=== PATIENT | female | born 1935 | race Two or more races ===

== ENCOUNTER 2024-01-16 08:15 | Inpatient (IN) | payer OTHER ==
[~2024-01-16] VITALS: Ht 152.4 cm; Wt 88.5 kg
[2024-01-16] MEDS ORDERED: TOLTERODINE TART4 MG (10:05)
[2024-01-16] MEDS ORDERED: [UNRECOGNIZED DRUG - OTHER] (10:06)
[2024-01-16] MEDS ORDERED: COZAAR100 MG (10:07)
[2024-01-16] MEDS ORDERED: [UNRECOGNIZED DRUG - OTHER] (10:07)
[2024-01-16] MEDS ORDERED: GABAPENTIN800 MG (10:08)
[2024-01-16] MEDS ORDERED: LANTUS SOL100 UNIT/1 (10:08)
[2024-01-16] MEDS ORDERED: ESCITALOPRAM (10:08)
[2024-01-16 11:15] LABS: HEMATOCRIT 34.4 % (36.0-45.00); HEMOGLOBIN 11.8 g/dL (12.0-15.00); MEAN CELL VOLUME 87.6 fL (80.00-100.00); MEAN CORPUSCULAR HEMOGLOBIN 30.1 pg (27.00-32.0); MEAN CORPUSCULAR HGB CONC 34.3 g/dl (32.0-36.0); PLATELET COUNT 325 K/uL (150-450); RED BLOOD COUNT 3.93 M/uL (4.00-6.00); RED CELL DISTRIBUTION WIDTH 14.1 % (11.5-14.5)
[2024-01-16 11:39] LABS: INR 1.02; PARTIAL THROMBOPLASTIN TIME 32.5 SECONDS (22.0-34.0); PROTHROMBIN TIME 10.7 SECONDS (9.0-11.5)
[2024-01-16 11:42] LABS: ALBUMIN 3.8 gm/dL (3.4-5.0); BILIRUBIN TOTAL 1.22 mg/dL (0.3-1.2); CALCIUM 9.7 mg/dL (8.5-10.1); CREATININE SERUM 0.96 mg/dL (0.55-1.02); GFR 54.85; GLOBULINA 3.6 G/DL (2.4-3.5); POTASSIUM 4.33 mEq/L (3.5-5.1); TOTAL PROTEIN 7.4 gm/dL (6.4-8.2)
[2024-01-16 11:57] LABS: PH,URINE 5.5 (5.0-8.0); URINE APPEARANCE Clear; URINE BILIRRUBIN Negative (NEGATIVE); URINE BLOOD Negative; URINE COLOR Yellow; URINE GLUCOSE Negative (NEGATIVE); URINE LEUKOCYTE Negative; URINE NITRATE Negative; URINE PROTEIN 30 (NEGATIVE)
[2024-01-16 12:02] LABS: URINE BACTERIA 36.5 uL (0.0-1933); URINE EPITHELIAL CELLS 9.7 uL (0.0-38.8); URINE RBC 4.5 uL (0.0-20.8); URINE WBC 13.4 uL (0.0-23.2)
[2024-01-23] MEDS ORDERED: TRANEXAMIC ACID 100MG/1ML (1000MG) AMPUL IV ONE ×3 (08:26→10:00)
[2024-01-23] MEDS ORDERED: CEFAZOLIN SODIUM 1,000 MG VIAL ONE (08:26)
[2024-01-23] MEDS ORDERED: ROPINIROLE HC0.25 MG (09:54)
[2024-01-23] MEDS ORDERED: ESCITALOPRAM OX10 MG (09:54)
[2024-01-23] MEDS ORDERED: ACEBUTOLOL HCL200 MG (09:56)
[2024-01-23] MEDS ORDERED: ACEBUTOLOL HCL400 MG (09:56)
[2024-01-23] MEDS ORDERED: MORPHINE SULFATE 4 MG/ML VIAL IV ONE (10:00)
[2024-01-23] MEDS ORDERED: CEFAZOLIN SODIUM 1,000 MG VIAL IV ONE (10:00)
[2024-01-23] MEDS ORDERED: KETOROLAC TROMETHAMINE 60 MG VIAL IM ONE (10:00)
[2024-01-23] MEDS ORDERED: PANTOPRAZOLE SO40 MG (10:03)
[2024-01-23] MEDS ORDERED: ONDANSETRON HCL 2 MG/ML VIAL IV PRN (12:15)
[2024-01-23] MEDS ORDERED: OxyCODONE HCL/APAP UD (PERCOCET) PO PRN (12:15)
[2024-01-23] MEDS ORDERED: hydrALAZINE HCL 20 MG VIAL ONE (12:55)
[2024-01-23] MEDS ORDERED: INSULIN LISPRO 1,000 UNIT/10 ML UNITS SUBCUTANEO PRN (15:00)
[2024-01-23] MEDS ORDERED: hydrALAZINE HCL 20 MG VIAL IV PRN (15:00)
[2024-01-23] MEDS ORDERED: DEXTROSE 50 % IN WATER 0.5 G/ML DISP.SYRIN IV PRN (15:00)
[2024-01-23] MEDS ORDERED: CEFAZOLIN SODIUM 1,000 MG VIAL IV SCH (18:00)
[2024-01-23] MEDS ORDERED: MORPHINE SULFATE 4 MG/ML CARTRIDGE IV SCH (18:00)
[2024-01-23] MEDS ORDERED: ORPHENADRINE CITRATE 100 MG TABLET PO SCH (21:00)
[2024-01-23] MEDS ORDERED: GABAPENTIN 100 MG CAPSULE PO SCH (21:00)
[2024-01-23 21:02] LABS: HEMATOCRIT 30.8 % (36.0-45.00); HEMOGLOBIN 10.6 g/dL (12.0-15.00); MEAN CELL VOLUME 87.5 fL (80.00-100.00); MEAN CORPUSCULAR HEMOGLOBIN 30.1 pg (27.00-32.0); MEAN CORPUSCULAR HGB CONC 34.4 g/dl (32.0-36.0); PLATELET COUNT 243 K/uL (150-450); RED BLOOD COUNT 3.52 M/uL (4.00-6.00)
[2024-01-23 21:31] LABS: CALCIUM 8.8 mg/dL (8.5-10.1); CREATININE SERUM 0.98 mg/dL (0.55-1.02); GFR 53.56; POTASSIUM 4.45 mEq/L (3.5-5.1)
[2024-01-24 06:56] LABS: HEMATOCRIT 28.5 % (36.0-45.00); MEAN CELL VOLUME 88.6 fL (80.00-100.00); MEAN CORPUSCULAR HEMOGLOBIN 31.1 pg (27.00-32.0); MEAN CORPUSCULAR HGB CONC 35.1 g/dl (32.0-36.0); PLATELET COUNT 253 K/uL (150-450); RED BLOOD COUNT 3.21 M/uL (4.00-6.00); RED CELL DISTRIBUTION WIDTH 13.6 % (11.5-14.5)
[2024-01-24] MEDS ORDERED: ENOXAPARIN SODIUM 30 MG/0.3 ML SYRINGE SUBCUTANEO SCH (09:00)
[2024-01-24] MEDS ORDERED: ROPINIROLE 2 MG PO SCH (09:00)
[2024-01-24] MEDS ORDERED: LOSARTAN POTASSIUM 100 MG TABLET PO SCH (09:00)
[2024-01-24] MEDS ORDERED: SOD FERRIC GLUC COMPLX/SUCROSE 62.5 MG/5 ML AMPUL IV SCH (13:01)
[2024-01-24] MEDS ORDERED: IRON FUM,PS/FOLIC ACID/VITC/B3 1 CAP CAPSULE PO SCH (13:01)
[2024-01-24] MEDS ORDERED: Cyanocobalamin/Mecobalamin 1 TAB.SL SL SCH (13:01)
[2024-01-24] MEDS ORDERED: VITAMIN B COMPLEX 1 EACH PO SCH (17:00)
== END 2024-01-25 16:02 | DRG 470 ==
LOC: SURG 01-23 05:55 → O/R 01-23 05:55 → SURH 01-23 07:00 → SURG 01-23 12:41 → SURH 01-23 17:48 → SURG 01-23 18:20
PROVIDERS: Internal Medicine; ADMIT Orthopaedic Surgery; ATTEND Orthopaedic Surgery
PROC: 0SRC0JZ Replacement of Right Knee Joint with Synthetic Substitute, Open Approach (ICD-10-PCS; principal; 2024-01-23 07:00)
DX: M17.11 Unilateral primary osteoarthritis, right knee (principal); D62 Acute posthemorrhagic anemia; M85.661 Other cyst of bone, right lower leg

== ENCOUNTER 2024-01-26 14:40 | Inpatient (IN) | payer OTHER ==
[~2024-01-26] VITALS: Ht 162.6 cm; Wt 68.5 kg
[~2024-01-26 14:40] MED LIST: ACEBUTOLOL HCL200 MG; ACEBUTOLOL HCL400 MG; COZAAR100 MG; ESCITALOPRAM; ESCITALOPRAM OX10 MG; GABAPENTIN800 MG; LANTUS SOL100 UNIT/1; PANTOPRAZOLE SO40 MG; ROPINIROLE HC0.25 MG; TOLTERODINE TART4 MG; [UNRECOGNIZED DRUG - OTHER]; [UNRECOGNIZED DRUG - OTHER]
[2024-01-26 17:38] LABS: PH,URINE 6.5 (5.0-8.0); URINE APPEARANCE Clear; URINE BILIRRUBIN Negative (NEGATIVE); URINE BLOOD Trace; URINE COLOR Yellow; URINE LEUKOCYTE Negative; URINE NITRATE Negative
[2024-01-26 17:39] LABS: URINE BACTERIA 245.7 uL (0.0-1933); URINE EPITHELIAL CELLS 6.6 uL (0.0-38.8); URINE RBC 9.7 uL (0.0-20.8)
[2024-01-26 17:53] LABS: HEMATOCRIT 25.3 % (36.0-45.00); MEAN CELL VOLUME 86.9 fL (80.00-100.00); MEAN CORPUSCULAR HGB CONC 35.3 g/dl (32.0-36.0); PLATELET COUNT 261 K/uL (150-450); RED BLOOD COUNT 2.91 M/uL (4.00-6.00); RED CELL DISTRIBUTION WIDTH 14.1 % (11.5-14.5)
[2024-01-26 17:55] LABS: URINE GLUCOSE >=1000 MG/DL (NEGATIVE); URINE PROTEIN 300 (NEGATIVE); URINE WBC 1.5 uL (0.0-23.2)
[2024-01-26 17:56] LABS: HEMOGLOBIN 8.9 g/dL (12.0-15.00); MEAN CORPUSCULAR HEMOGLOBIN 30.5 pg (27.00-32.0)
[2024-01-26 18:04] LABS: ABG PH 7.436 (7.35-7.45); BASE EXCESS -7.3 mmol/l; BICARBONATE 20.3 mmol/l (23-25); SaO2 92.3 %
[2024-01-26 18:05] LABS: Tco2 21.8 mmol/l; allen test SATISFACTORY; puncture site RADIAL RIGHT
[2024-01-26 18:06] LABS: o2 28 %
[2024-01-26 18:07] LABS: CREATININE SERUM 0.86 mg/dL (0.55-1.02); GFR 62.27; POTASSIUM 3.9 mEq/L (3.5-5.1)
[2024-01-26] MEDS ORDERED: FUROsemide 40 MG/4 ML VIAL IV SCH (22:47)
[2024-01-26] MEDS ORDERED: GABAPENTIN 800 MG TABLET PO SCH (22:49)
[2024-01-26] MEDS ORDERED: OxyCODONE HCL/APAP UD (PERCOCET) PO PRN (23:00)
[2024-01-26] MEDS ORDERED: ACETAMINOPHEN 500 MG GEL..CAP PO PRN (23:00)
[2024-01-26] MEDS ORDERED: ONDANSETRON HCL 4 MG in 0.9 % SODIUM CHLORIDE 50 ML IV PRN (23:00)
[2024-01-26] MEDS ORDERED: hydrALAZINE HCL 20 MG VIAL IV PRN (23:00)
[2024-01-26] MEDS ORDERED: INSULIN LISPRO 1,000 UNIT/10 ML UNITS SUBCUTANEO PRN (23:00)
[2024-01-26] MEDS ORDERED: DEXTROSE 50 % IN WATER 0.5 G/ML DISP.SYRIN IV PRN (23:00)
[2024-01-27] MEDS ORDERED: IPRATROPIUM BROMIDE 0.5 MG/2.5 ML AMPUL.NEB IH SCH (01:00)
[2024-01-27 01:16] LABS: CKMB 5.1 NG/ML (0.5-3.6)
[2024-01-27 08:07] LABS: URINE APPEARANCE Clear; URINE BILIRRUBIN Negative (NEGATIVE); URINE BLOOD Negative; URINE COLOR Yellow; URINE GLUCOSE Negative (NEGATIVE); URINE LEUKOCYTE Negative; URINE NITRATE Negative; URINE PROTEIN Trace (NEGATIVE); URINE UROBILINOGEN 0.2 E.U./dl
[2024-01-27 08:08] LABS: HEMATOCRIT 25.2 % (36.0-45.00); MEAN CELL VOLUME 87.9 fL (80.00-100.00); MEAN CORPUSCULAR HGB CONC 35.3 g/dl (32.0-36.0); PLATELET COUNT 263 K/uL (150-450); RED BLOOD COUNT 2.87 M/uL (4.00-6.00); RED CELL DISTRIBUTION WIDTH 13.9 % (11.5-14.5)
[2024-01-27 08:13] LABS: INR 1.04; PARTIAL THROMBOPLASTIN TIME 29.3 SECONDS (22.0-34.0); PROTHROMBIN TIME 10.9 SECONDS (9.0-11.5)
[2024-01-27 08:17] LABS: URINE BACTERIA 13.8 uL (0.0-1933); URINE EPITHELIAL CELLS 4.1 uL (0.0-38.8); URINE RBC 10.3 uL (0.0-20.8); URINE WBC 4.4 uL (0.0-23.2)
[2024-01-27 08:24] LABS: ERYTHROCYTE SEDIMENTATION RATE 55 mm/hr; HEMOGLOBIN 8.9 g/dL (12.0-15.00)
[2024-01-27 08:36] LABS: ALBUMIN 2.9 gm/dL (3.4-5.0); BILIRUBIN TOTAL 1.64 mg/dL (0.3-1.2); BILIRUBIN,CONJUGATED 0.42 mg/dL (0.0-0.2); BILIRUBIN,UNCONJUGATED 1.22 mg/dL (0.0-0.6); CALCIUM 8.1 mg/dL (8.5-10.1); CHOL HDL RATIO 3.3 (0-5.0); CREATININE SERUM 0.9 mg/dL (0.55-1.02); GFR 59.09; GLOBULINA 2.8 G/DL (2.4-3.5); POTASSIUM 3.55 mEq/L (3.5-5.1); TOTAL PROTEIN 5.7 gm/dL (6.4-8.2)
[2024-01-27 08:44] LABS: C-REACTIVE PROTEIN 9.36 MG/DL (0.00-0.29)
[2024-01-27] MEDS ORDERED: ENOXAPARIN SODIUM 40 MG/0.4 ML SYRINGE SUBCUTANEO SCH (09:00)
[2024-01-27] MEDS ORDERED: ROPINIROLE 2 MG PO SCH (09:00)
[2024-01-27] MEDS ORDERED: PATIENTS OWN MEDICATION (MEDICAMENTO EN PISO) PO SCH ×3 (09:00)
[2024-01-27] MEDS ORDERED: PANTOPRAZOLE SODIUM 40 MG in 0.9 % SODIUM CHLORIDE 8 ML IV PUSH SCH (09:00)
[2024-01-27] MEDS ORDERED: LOSARTAN POTASSIUM 100 MG TABLET PO SCH (09:00)
[2024-01-27 09:14] LABS: CKMB 3.8 NG/ML (0.5-3.6)
[2024-01-27 10:21] LABS: CKMB 2.9 NG/ML (0.5-3.6)
[2024-01-27] MEDS ORDERED: INSULIN GLARGINE,HUM.REC.ANLOG 1,000 UNITS/10 ML UNITS SUBCUTANEO STA (11:11)
[2024-01-27] MEDS ORDERED: METOPROLOL SUCCINATE 25 MG TAB.SR.24H PO SCH (14:46)
[2024-01-27] MEDS ORDERED: SOD FERRIC GLUC COMPLX/SUCROSE 62.5 MG in 0.9 % SODIUM CHLORIDE 50 ML IV SCH (15:55)
[2024-01-27] MEDS ORDERED: FOLIC ACID 1 MG TABLET PO SCH (15:56)
[2024-01-27] MEDS ORDERED: Cyanocobalamin/Mecobalamin 1 TAB.SL SL SCH (15:56)
[2024-01-27] MEDS ORDERED: FAMOtidine 20 MG TABLET PO SCH (17:00)
[2024-01-27] MEDS ORDERED: ENOXAPARIN SODIUM 30 MG/0.3 ML SYRINGE SUBCUTANEO SCH (21:00)
[2024-01-28] MEDS ORDERED: INSULIN GLARGINE,HUM.REC.ANLOG 1,000 UNITS/10 ML UNITS SUBCUTANEO SCH ×2 (09:00→09:30)
[2024-01-29 07:30] LABS: HEMATOCRIT 24.7 % (36.0-45.00); MEAN CELL VOLUME 87.8 fL (80.00-100.00); PLATELET COUNT 262 K/uL (150-450); RED BLOOD COUNT 2.81 M/uL (4.00-6.00); RED CELL DISTRIBUTION WIDTH 14.1 % (11.5-14.5)
[2024-01-29 07:33] LABS: HEMOGLOBIN 8.6 g/dL (12.0-15.00); MEAN CORPUSCULAR HEMOGLOBIN 30.6 pg (27.00-32.0)
[2024-01-29 08:14] LABS: ALBUMIN 2.5 gm/dL (3.4-5.0); BILIRUBIN TOTAL 1.11 mg/dL (0.3-1.2); CALCIUM 7.9 mg/dL (8.5-10.1); CREATININE SERUM 0.99 mg/dL (0.55-1.02); GFR 52.93; GLOBULINA 2.8 G/DL (2.4-3.5); POTASSIUM 3.38 mEq/L (3.5-5.1); TOTAL PROTEIN 5.3 gm/dL (6.4-8.2)
[2024-01-29] MEDS ORDERED: INSULIN LISPRO 1,000 UNIT/10 ML UNITS SUBCUTANEO SCH (12:00)
[2024-01-29] MEDS ORDERED: DOCUSATE SODIUM 100MG CAP PO SCH (21:00)
[2024-01-30] MEDS ORDERED: INSULIN LISPRO 1,000 UNIT/10 ML UNITS SUBCUTANEO STA (08:51)
[2024-01-30] MEDS ORDERED: FUROsemide 20 MG/2 ML VIAL IV SCH (09:00)
[2024-01-30] MEDS ORDERED: IRON FUM,PS/FOLIC/BCOMP,C NO.9 1 CAP CAPSULE PO SCH (09:00)
[2024-01-30] MEDS ORDERED: INSULIN GLARGINE,HUM.REC.ANLOG 1,000 UNITS/10 ML UNITS SUBCUTANEO SCH (09:00)
[2024-01-30] MEDS ORDERED: LASIX20 MG PO (15:13)
[2024-01-31] MEDS ORDERED: INSULIN LISPRO 1,000 UNIT/10 ML UNITS SUBCUTANEO SCH (08:00)
== END 2024-01-30 22:25 | disposition designated cancer center or children's hospital (05) | DRG 293 ==
LOC: ER 14:40 → MEDJ 22:53
PROVIDERS: Emergency Medicine; General Practice; Internal Medicine Endocrinology, Diabetes & Metabolism; ADMIT Internal Medicine; ATTEND Internal Medicine
PROC: BW24YZZ Computerized Tomography (CT Scan) of Chest and Abdomen using Other Contrast (ICD-10-PCS; principal; 2024-01-26)
PROC: B24BYZZ Ultrasonography of Heart with Aorta using Other Contrast (ICD-10-PCS; 2024-01-26)
DX: I50.9 Heart failure, unspecified (principal); D64.9 Anemia, unspecified; E11.8 Type 2 diabetes mellitus with unspecified complications; Z79.4 Long term (current) use of insulin; I10 Essential (primary) hypertension; R06.02 Shortness of breath; M17.11 Unilateral primary osteoarthritis, right knee

== ENCOUNTER 2024-09-17 07:15 | Inpatient (IN) | payer OTHER ==
[~2024-09-17] VITALS: Ht 162.6 cm; Wt 60.8 kg
[~2024-09-17 07:15] MED LIST changes: +LASIX20 MG PO
[2024-09-17 08:29] LABS: PH,URINE 5.5 (5.0-8.0); URINE APPEARANCE Clear; URINE BILIRRUBIN Negative (NEGATIVE); URINE BLOOD Negative; URINE COLOR Yellow; URINE GLUCOSE Negative (NEGATIVE); URINE KETONE Negative (NEGATIVE); URINE LEUKOCYTE Small; URINE NITRATE Negative; URINE PROTEIN Negative (NEGATIVE); URINE UROBILINOGEN 0.2 E.U./dl
[2024-09-17 08:31] LABS: HEMATOCRIT 36.1 % (36.0-45.00); HEMOGLOBIN 12.1 g/dL (12.0-15.00); MEAN CELL VOLUME 90.6 fL (80.00-100.00); MEAN CORPUSCULAR HEMOGLOBIN 30.2 pg (27.00-32.0); MEAN CORPUSCULAR HGB CONC 33.4 g/dl (32.0-36.0); PLATELET COUNT 274 K/uL (150-450); RED BLOOD COUNT 3.99 M/uL (4.00-6.00); RED CELL DISTRIBUTION WIDTH 14.6 % (11.5-14.5)
[2024-09-17 08:31] LABS: URINE BACTERIA 529.1 uL (0.0-1933); URINE EPITHELIAL CELLS 22.8 uL (0.0-38.8); URINE RBC 2.4 uL (0.0-20.8)
[2024-09-17] MEDS ORDERED: FARXIGA5 MG (08:31)
[2024-09-17] MEDS ORDERED: OZEMPIC (08:31)
[2024-09-17 08:33] LABS: URINE CAST 0.15 uL (0.0-1.40)
[2024-09-17 08:54] LABS: INR 1.04; PARTIAL THROMBOPLASTIN TIME 32.3 SECONDS (22.0-34.0)
[2024-09-17 09:15] LABS: PROTHROMBIN TIME 11.3 SECONDS (9.0-11.5)
[2024-09-17 09:25] LABS: ALBUMIN 3.7 gm/dL (3.4-5.0); BILIRUBIN TOTAL 1.09 mg/dL (0.3-1.2); CALCIUM 9.6 mg/dL (8.5-10.1); CREATININE SERUM 0.86 mg/dL (0.55-1.02); GFR 62.13; GLOBULINA 3.8 G/DL (2.4-3.5); POTASSIUM 5.09 mEq/L (3.5-5.1); TOTAL PROTEIN 7.5 gm/dL (6.4-8.2)
[2024-09-24] MEDS ORDERED: ONDANSETRON HCL 2 MG/ML VIAL IV PRN (08:00)
[2024-09-24] MEDS ORDERED: TRANEXAMIC ACID 100MG/1ML (1000MG) AMPUL IV ONE ×2 (08:15)
[2024-09-24] MEDS ORDERED: BUPIVACAINE HCL/PF 0.25% 30ML VIAL InF ONE (08:15)
[2024-09-24] MEDS ORDERED: LIDOCAINE HCL 1%/EPINEPHRINE 20ML VIAL IJ ONE (08:15)
[2024-09-24] MEDS ORDERED: MORPHINE SULFATE 4 MG/ML VIAL IV ONE ×3 (08:15→11:10)
[2024-09-24] MEDS ORDERED: CEFAZOLIN SODIUM 1,000 MG VIAL IV ONE (08:15)
[2024-09-24] MEDS ORDERED: hydrALAZINE HCL 20 MG VIAL IV ONE (11:00)
[2024-09-24] MEDS ORDERED: DEXTROSE 50 % IN WATER 0.5 G/ML DISP.SYRIN IV PRN ×2 (11:15→20:30)
[2024-09-24] MEDS ORDERED: INSULIN LISPRO 1,000 UNIT/10 ML UNITS SUBCUTANEO PRN ×2 (11:15→20:30)
[2024-09-24] MEDS ORDERED: CEFAZOLIN SODIUM 1,000 MG VIAL IV SCH (12:00)
[2024-09-24] MEDS ORDERED: hydrALAZINE HCL 20 MG VIAL IV SCH (12:00)
[2024-09-24] MEDS ORDERED: MORPHINE SULFATE 4 MG/ML CARTRIDGE IV SCH (12:00)
[2024-09-24] MEDS ORDERED: OxyCODONE HCL/APAP UD (PERCOCET) PO PRN (13:00)
[2024-09-24 13:30] VITALS: BP 148/68; O2SAT 95
[2024-09-24 15:48] VITALS: BP 180/74; O2SAT 96
[2024-09-24] MEDS ORDERED: GABAPENTIN 100 MG CAPSULE PO SCH (21:00)
[2024-09-24] MEDS ORDERED: ORPHENADRINE CITRATE 100 MG TABLET PO SCH (21:00)
[2024-09-25 00:21] VITALS: BP 190/70; O2SAT 98
[2024-09-25 07:14] LABS: HEMATOCRIT 32.7 % (36.0-45.00); HEMOGLOBIN 11.4 g/dL (12.0-15.00); MEAN CELL VOLUME 88.8 fL (80.00-100.00); MEAN CORPUSCULAR HEMOGLOBIN 30.8 pg (27.00-32.0); MEAN CORPUSCULAR HGB CONC 34.7 g/dl (32.0-36.0); PLATELET COUNT 290 K/uL (150-450); RED BLOOD COUNT 3.69 M/uL (4.00-6.00); RED CELL DISTRIBUTION WIDTH 14.5 % (11.5-14.5)
[2024-09-25] MEDS ORDERED: PANTOPRAZOLE SODIUM 40 MG TABLET.DR PO SCH (07:30)
[2024-09-25 07:59] VITALS: BP 191/77; O2SAT 96
[2024-09-25] MEDS ORDERED: RIVAROXABAN 10 MG TAB PO SCH (09:00)
[2024-09-25] MEDS ORDERED: LOSARTAN POTASSIUM 100 MG TABLET PO SCH (09:00)
[2024-09-25] MEDS ORDERED: OxyCODONE HCL/APAP UD (PERCOCET) PO PRN (13:22)
[2024-09-25 16:00] VITALS: BP 164/61; O2SAT 96
[2024-09-25] MEDS ORDERED: PATIENTS OWN MEDICATION (MEDICAMENTO EN PISO) PO SCH ×2 (17:00→21:00)
[2024-09-25] MEDS ORDERED: SOD FERRIC GLUC COMPLX/SUCROSE 62.5 MG/5 ML AMPUL IV SCH (17:00)
[2024-09-25] MEDS ORDERED: Cyanocobalamin/Mecobalamin 1 TAB.SL SL SCH (17:00)
[2024-09-25] MEDS ORDERED: VITAMIN B COMPLEX 1 EACH PO SCH (17:00)
[2024-09-25] MEDS ORDERED: TOLTERODINE 4 MG PO SCH (17:00)
[2024-09-25] MEDS ORDERED: IRON FUM,PS/FOLIC ACID/VITC/B3 1 CAP CAPSULE PO SCH (17:00)
[2024-09-25 18:57] VITALS: BP 153/67; O2SAT 96
[2024-09-26 00:34] VITALS: BP 157/70; O2SAT 95
[2024-09-26] MEDS ORDERED: LEVOTHYROXINE SODIUM 25 MCG TABLET PO SCH (06:00)
[2024-09-26 07:16] LABS: HEMOGLOBIN 10.8 g/dL (12.0-15.00); MEAN CELL VOLUME 88.5 fL (80.00-100.00); MEAN CORPUSCULAR HGB CONC 33.8 g/dl (32.0-36.0); PLATELET COUNT 266 K/uL (150-450); RED BLOOD COUNT 3.62 M/uL (4.00-6.00); RED CELL DISTRIBUTION WIDTH 14.4 % (11.5-14.5)
[2024-09-26 08:00] VITALS: BP 157/72; O2SAT 95
[2024-09-26] MEDS ORDERED: PATIENTS OWN MEDICATION (MEDICAMENTO EN PISO) PO SCH (09:00)
[2024-09-26 14:59] LABS: ABG PH 7.483 (7.35-7.45); ABG PO2 100.3 mmHg (80-100); ABG pCO2 32.6 mmHg (35-45); BASE EXCESS 1.2 mmol/l; BICARBONATE 23.9 mmol/l (23-25); SaO2 98.3 %; Tco2 24.9 mmol/l
[2024-09-26 15:00] LABS: allen test SATISFACTORY; puncture site RADIAL RIGHT
[2024-09-26 15:01] LABS: o2 32 %
[2024-09-26] MEDS ORDERED: METOPROLOL SUCCINATE 25 MG TAB.SR.24H PO SCH (15:49)
[2024-09-26 16:20] VITALS: BP 147/63; O2SAT 97
[2024-09-26] MEDS ORDERED: FUROsemide 40 MG/4 ML VIAL IV NR (16:45)
[2024-09-27 00:14] VITALS: BP 160/70; O2SAT 97
[2024-09-27] MEDS ORDERED: FUROsemide 40 MG/4 ML VIAL IV SCH (09:00)
[2024-09-27 09:26] LABS: ALBUMIN 2.9 gm/dL (3.4-5.0); BILIRUBIN TOTAL 1.25 mg/dL (0.3-1.2); CALCIUM 8.7 mg/dL (8.5-10.1); CREATININE SERUM 0.72 mg/dL (0.55-1.02); GFR 76.27; POTASSIUM 3.77 mEq/L (3.5-5.1); TOTAL PROTEIN 5.9 gm/dL (6.4-8.2)
[2024-09-27 10:03] VITALS: BP 152/71; O2SAT 99
[2024-09-27 15:05] LABS: HEMATOCRIT 31.1 % (36.0-45.00); HEMOGLOBIN 10.7 g/dL (12.0-15.00); MEAN CELL VOLUME 88.6 fL (80.00-100.00); MEAN CORPUSCULAR HEMOGLOBIN 30.6 pg (27.00-32.0); MEAN CORPUSCULAR HGB CONC 34.5 g/dl (32.0-36.0); PLATELET COUNT 249 K/uL (150-450); RED BLOOD COUNT 3.51 M/uL (4.00-6.00); RED CELL DISTRIBUTION WIDTH 14.3 % (11.5-14.5)
[2024-09-27 16:24] VITALS: BP 132/66; O2SAT 95
== END 2024-09-28 07:41 | DRG 470 ==
LOC: O/R 09-24 05:13 → SURH 09-24 07:15 → SURG 09-24 12:57
PROVIDERS: Internal Medicine; ADMIT Orthopaedic Surgery; ATTEND Orthopaedic Surgery
PROC: 0QUF0KZ Supplement Left Patella with Nonautologous Tissue Substitute, Open Approach (ICD-10-PCS; 2024-09-24)
PROC: 0SRD0JZ Replacement of Left Knee Joint with Synthetic Substitute, Open Approach (ICD-10-PCS; principal; 2024-09-24 09:45)
PROC: 4A12X4Z Monitoring of Cardiac Electrical Activity, External Approach (ICD-10-PCS; 2024-09-26)
DX: M17.12 Unilateral primary osteoarthritis, left knee (principal); J91.8 Pleural effusion in other conditions classified elsewhere; D62 Acute posthemorrhagic anemia; M85.662 Other cyst of bone, left lower leg; R26.89 Other abnormalities of gait and mobility; I10 Essential (primary) hypertension; E11.9 Type 2 diabetes mellitus without complications; Z79.4 Long term (current) use of insulin